=== PATIENT | female | born 1995 | race Caucasian/White ===

== ENCOUNTER 2018-05-29 14:57 | Emergency (ER) | payer OTHER ==
[~2018-05-29] VITALS: Ht 162.6 cm; Wt 47.6 kg
[2018-05-29] MEDS ORDERED: NORE-97 PO (15:15)
--- NOTE | 2018-05-29 15:20 | NUR ---
PATIENT WAS MSE BY DR BURGOS IN ROOM 05A.
--- NOTE | 2018-05-29 15:28 | NUR ---
Patient discharged to home in stable conditon. Written and verbal after care instructions given. Patient verbalizes understanding of instructions.
[2018-05-29 15:30] VITALS: BP 105/72
== END 2018-05-29 15:39 | disposition home or self-care (01) ==
LOC: ER 14:57
DX: M62.838 Other muscle spasm (principal); R42 Dizziness and giddiness; Z79.899 Other long term (current) drug therapy
CPT/HCPCS: A4663